=== PATIENT | female | born 1985 | race Caucasian/White ===

== ENCOUNTER → 2017-07-19 | Outpatient (CLI) | payer OTHER ==
--- NOTE | 2017-07-19 15:56 | REP ---
MRI BRAIN WITHOUT AND WITH CONTRAST: HISTORY: Papilledema. CONTRAST: ProHance 22 mL. COMPARISON: CT 06/18/2006. There are no areas of abnormal signal intensity in the brain. There is no intraparenchymal hemorrhage, infarct, mass or midline shift. The sella turcica is partially empty. A small developmental venous anomaly is present in the left posterior black. The ventricular system is normal in appearance. There is no extracerebral collection. Mucosal thickening is present in the ethmoid, maxillary and sphenoid sinuses. IMPRESSION: 1. There is no acute intracranial lesion. 2. There is a small developmental venous anomaly in the left posterior black. Signed by Lee Alatorre MD 07/19/2017 03:59 P
== END ==
LOC: M RAD 08:50
PROVIDERS: ATTEND Psychiatry & Neurology Neurology
DX: G93.89 Other specified disorders of brain (principal); H47.10 Unspecified papilledema
CPT/HCPCS: 70553; A9576

== ENCOUNTER → 2018-01-10 | Outpatient (REF) | payer BC ==
[2018-01-15 14:13] LABS: HPV HYBRID CAPTURE II Negative (Negative)
== END ==
LOC: M LAB REF 13:47
DX: Z01.419 Encounter for gynecological examination (general) (routine) without abnormal findings (principal)